=== PATIENT | female | born 1985 | race African-American/Black ===

== ENCOUNTER 2022-05-11 11:50 | Inpatient (IN) | payer OTHER ==
[2022-05-11] MEDS ORDERED: PHENYLEPHRINE HCL 10 MG/1 ML SINGLE DOSE VIAL ONE ×2 (12:50→15:12)
[2022-05-11] MEDS ORDERED: morphine SULFATE/PF 1 MG/2 ML (2cc Syringe - QUVA) ONE (12:50)
[2022-05-11 13:01] VITALS: BMI 48.8
[2022-05-11] MEDS ORDERED: ELECTROLYTE-148 SOLN 500 ML IV ONE (14:10)
[2022-05-11] MEDS ORDERED: CITRIC ACID/SODIUM CITRATE 30 ML UNIT-DOSE CUP PO ONE (14:10)
[2022-05-11] MEDS: ELECTROLYTE-148 SOLN 1,000 ML IV SCH (14:15)
[2022-05-11] MEDS ORDERED: ceFAZolin SODIUM 1 GM VIAL ONE (15:12)
[2022-05-11] MEDS ORDERED: KETOROLAC TROMETHAMINE 30 MG/1 ML VIAL ONE (15:38)
[2022-05-11] MEDS ORDERED: ONDANSETRON 4 MG/2 ML VIAL ONE (15:44)
[2022-05-11] MEDS ORDERED: OXYTOCIN 10 UNITS/ML VIAL ONE (15:52)
[2022-05-11] MEDS ORDERED: ACETAMINOPHEN 325 MG TABLET (FP) PO PRN ×2 (16:42→16:50)
[2022-05-11] MEDS ORDERED: IBUPROFEN 800 MG/8 ML IJ IVPB PRN (16:42)
[2022-05-11] MEDS ORDERED: SENNOSIDES/DOCUSATE COMBO (SENNA PLUS) TABLET (UD) PO PRN (16:42)
[2022-05-11] MEDS ORDERED: METHYLERGONOVINE MALEATE 0.2 MG/1 ML AMP IM PRN (16:42)
[2022-05-11] MEDS ORDERED: OXYTOCIN 20 UNITS in 0.9% NS 20 UNIT/1,000 ML INFUS.BAG IV SCH (16:45)
[2022-05-11] MEDS ORDERED: morphine SULFATE/PF 1 MG/2 ML (2cc Syringe - QUVA) SPIN ONE (16:50)
[2022-05-11] MEDS ORDERED: ONDANSETRON 4 MG/2 ML VIAL IVPUSH PRN (16:50)
[2022-05-11] MEDS ORDERED: IBUPROFEN 600 MG TABLET (FP) PO PRN (16:50)
[2022-05-11] MEDS: FERROUS SO4 325 MG TABLET (FP) PO SCH (21:31)
[2022-05-12] MEDS ORDERED: oxyCODONE HCL 5 MG TABLET PO PRN ×2 (04:42)
[2022-05-12 08:46] LABS: BASO % 0.3 % (0-2.0); EOS % 0.4 % (0-4.5); HEMATOCRIT 31.4 % (32.4-45.2); HEMOGLOBIN 10.1 GM/dL (10.7-15.3); LYMPH % 8.6 % (8-40); MCH 23.8 pg (25.7-33.7); MCHC 32.2 g/dl (32.0-36.0); MEAN CELL VOLUME 73.8 fl (80-96); MEAN PLT VOLUME 7.4 fl (7.5-11.1); MONO % 7.4 % (3.8-10.2); NEUT % 83.3 % (42.8-82.8); PLATELET COUNT 241 10^3/uL (134-434); RBC 4.26 M/mm3 (3.60-5.2); RDW 16.5 % (11.6-15.6); WHITE BLOOD COUNT 12.6 K/mm3 (4.0-10.0)
[2022-05-12] MEDS: FERROUS SO4 325 MG TABLET (FP) PO SCH ×2 (09:33→22:22)
[2022-05-12] MEDS: PRENATAL VITAMINS W/ FOLIC ACID TABLET (FP) PO SCH (09:33)
[2022-05-12] MEDS: SIMETHICONE 80 MG TAB.CHEW (FP) PO PRN ×2 (11:55→16:10)
[2022-05-12] MEDS: IBUPROFEN 600 MG TABLET (FP) PO PRN ×2 (11:55→16:10)
[2022-05-12] MEDS: ELECTROLYTE-148 SOLN 1,000 ML IV SCH (14:18)
[2022-05-12] MEDS ORDERED: BISACODYL 10 MG SUPP.RECT RC PRN (16:42)
[2022-05-13] MEDS: SIMETHICONE 80 MG TAB.CHEW (FP) PO PRN ×3 (01:20→21:20)
[2022-05-13] MEDS: IBUPROFEN 600 MG TABLET (FP) PO PRN ×3 (01:20→17:52)
[2022-05-13] MEDS: FERROUS SO4 325 MG TABLET (FP) PO SCH ×2 (09:38→21:20)
[2022-05-13] MEDS: PRENATAL VITAMINS W/ FOLIC ACID TABLET (FP) PO SCH (09:38)
[2022-05-14] MEDS: IBUPROFEN 600 MG TABLET (FP) PO PRN ×2 (00:46→09:25)
[2022-05-14] MEDS: FERROUS SO4 325 MG TABLET (FP) PO SCH (09:26)
[2022-05-14] MEDS: PRENATAL VITAMINS W/ FOLIC ACID TABLET (FP) PO SCH (09:26)
[2022-05-14 12:18] VITALS: BP 126/83; PULSE 72; RESP 16; TEMP 98.2
== END 2022-05-14 11:55 | disposition home or self-care (01) | DRG 788 ==
LOC: JLDR 11:50 → J3W 20:01
PROVIDERS: ADMIT Obstetrics & Gynecology; ATTEND Obstetrics & Gynecology
PROC: 10D00Z1 Extraction of Products of Conception, Low, Open Approach (ICD-10-PCS; principal; 2022-05-11)
DX: O34.219 Maternal care for unspecified type scar from previous cesarean delivery (principal); Z3A.39 39 weeks gestation of pregnancy; Z37.0 Single live birth
CPT/HCPCS: 36415; 85025; 88307-TC